=== PATIENT | female | born 1995 | race American Indian/Alaskan Native ===

== ENCOUNTER 2017-06-12 07:40 | Emergency (ER) | payer SELFPAY ==
[2017-06-12 08:28] LABS: HCG Qualitative,Urine Negative (Negative)
[2017-06-12 08:30] LABS: Bacteria,Urine 1+ /HPF (Negative); Bilirubin,Urine NEG (Negative); Blood,Urine NEG (Negative); Color,Urine Amber (Yellow); Mucus,Urine 3+ /HPF; Nitrite,Urine NEG (Negative)
--- NOTE | 2017-06-12 12:02 | Emergency Department Report ---
ED Female HPI - General Chief complaint: Urogenital-Female Stated complaint: ABDOMINAL PAIN Time Seen by Provider: 06/12/17 11:20 Source: patient Mode of arrival: Ambulatory Limitations: No Limitations - History of Present Illness Initial comments: PT states she was dx with chlamydia 1 or 2 years ago. PT states she was treated but the vaginal discharge did not resolve. PT states she had full panel STD testing 3-4 months ago and was told that everything was negative. PT states in the last week, she has noticed an odor with her vaginal discharge. She also noted a thicker discharge with itching. PT states she tried OTC monistat and Rephresh gel for this but no improvement. She denies being sexually active at this time. MD Complaint: vaginal discharge -: Gradual, year(s) Radiation: non-radiating Severity: mild Quality: other (itching ) Consistency: constant, intermittent Worsens with: menstrual period Are you Now?: No Last Menstrual Period: 06/05/17 EDC: 03/12/18 Associated Symptoms: vaginal discharge. denies: abdominal pain, nausea/vomiting , fever/chills, dysuria, rash - Related Data Sexually active: No Previous Rx's Medication Instructions Recorded Last Taken Type Fluconazole [Diflucan TAB] 150 mg PO ONCE PRN #2 tablet 06/12/17 Unknown Rx metroNIDAZOLE [Flagyl] 500 mg PO Q12HR #14 tab 06/12/17 Unknown Rx Allergies Allergy/AdvReac Type Severity Reaction Status Date / Time No Known Allergies Allergy Unverified 06/12/17 08:00 ED Review of Systems ROS: Stated complaint: ABDOMINAL PAIN Other details as noted in HPI Comment: All other systems reviewed and negative Constitutional: denies: chills, fever Gastrointestinal: denies: abdominal pain, nausea, vomiting Genitourinary: discharge. denies: dysuria, abnormal menses Musculoskeletal: denies: back pain Skin: denies: rash ED Past Medical Hx - Past Medical History Previous Medical History?: No - Surgical History Past Surgical History?: No - Social History Smoking Status: Never Smoker - Medications Home Medications: Home Medications Medication Instructions Recorded Confirmed Last Taken Type Fluconazole [Diflucan TAB] 150 mg PO ONCE PRN #2 tablet 06/12/17 Unknown Rx metroNIDAZOLE [Flagyl] 500 mg PO Q12HR #14 tab 06/12/17 Unknown Rx ED Physical Exam - General Limitations: No Limitations General appearance: alert, in no apparent distress - Head Head exam: Present: atraumatic, normocephalic, normal inspection - Eye Eye exam: Present: normal appearance, PERRL, conjunctival injection - ENT ENT exam: Present: normal exam, normal orophraynx, mucous membranes dry, TM's normal bilaterally, normal external ear exam - Neck Neck exam: Present: normal inspection, full ROM. Absent: lymphadenopathy - Respiratory Respiratory exam: Present: normal lung sounds bilaterally. Absent: respiratory distress, chest wall tenderness - Cardiovascular Cardiovascular Exam: Present: regular rate, normal rhythm, normal heart sounds - GI/Abdominal GI/Abdominal exam: Present: soft, normal bowel sounds. 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 Absent: normal external exam (thick white vaginal discharge noted on labia ) Speculum exam: Present: vaginal discharge, cervical discharge, other (friable cervix ). Absent: normal speculum exam, vaginal bleeding, foreign body Bi-manual exam: Present: normal bi-manual exam. Absent: cervical motion tendernes, adnexal tenderness, adnexal mass, uterine enlargement, uterine tenderness - Extremities Exam Extremities exam: Present: normal inspection, full ROM - Back Exam Back exam: Present: normal inspection, full ROM - Neurological Exam Neurological exam: Present: alert, oriented X3, normal gait - Psychiatric Psychiatric exam: Present: normal affect, normal mood - Skin Skin exam: Present: warm, dry, intact, normal color ED Course Vital Signs 06/12/17 06/12/17 07:57 15:04 Temperature 98.1 F 97.9 F Pulse Rate 75 73 Respiratory 16 20 Rate Blood Pressure 112/61 Blood Pressure 106/73 [Left] O2 Sat by Pulse 100 100 Oximetry - Reevaluation(s) Reevaluation #1: 06/12/17 12:03 PT aware of plan of care. Reevaluation #2: 06/12/17 13:12 PT aware of abnormal PE findings and plan of care Reevaluation #3: 06/12/17 14:24 PT empirically treated for gc/ct. PT aware to refrain to from sexual activity x 1 week. PT aware she will need to follow up with PCP or [facility]. PT aware of wet prep results. - Pulse Oximetry Interpretation Digit-Finger Initial Pulse Oximetry Readin Actions Taken: none ED Medical Decision Making - Lab Data Lab Results 06/12/17 06/12/17 Range/Units 08:06 13:50 Urine Color [place] Yellow (Yellow) Urine Turbidity Cloudy Clear (Clear) Urine pH 5.0 5.0 (5.0-7.0) Ur Specific [place] 1.034 H 1.033 H (1.003-1.030) Urine Protein 100 mg/dl 30 mg/dl (Negative) mg/dL Urine Glucose (UA) Neg Neg (Negative) mg/dL Urine Ketones Tr 20 (Negative) mg/dL Urine Blood Neg Neg (Negative) Urine Nitrite Neg Neg (Negative) Ur Reducing Substances Not Reportable Urine Bilirubin Neg Neg (Negative) Urine Ictotest Not Reportable Urine Urobilinogen 4.0 2.0 (<2.0) mg/dL Ur Leukocyte Esterase Lg Neg (Negative) Urine WBC (Auto) 39.0 H 4.0 (0.0-6.0) /HPF Urine RBC (Auto) 63.0 3.0 (0.0-6.0) /HPF U Epithel Cells (Auto) 16.0 H 2.0 (0-13.0) /HPF Urine Bacteria (Auto) 1+ (Negative) /HPF Urine Mucus 3+ 3+ /HPF Urine Yeast (Budding) 2+ /HPF Urine HCG, Qual Negative (Negative) Repeat cath ua without concerns for UTI. first specimen likely contaminated with vaginal discharge - Differential Diagnosis std, vaginiosis, , uti Critical Care Time: No Critical care attestation.: If time is entered above; I have spent that time in minutes in the direct care of this critically ill patient, excluding procedure time. ED Disposition Clinical Impression: Friable cervix, Bacterial vaginosis, Candidiasis of vulva and vagina Disposition: DC-01 TO HOME OR SELFCARE Is pt being admited?: No Does the pt Need Aspirin: No Condition: Stable Instructions: Bacterial Vaginosis (ED), Cervicitis (ED) Additional Instructions: Follow up with PCP or [facility] [employer]GER in the next week No sex x 1 week Follow up with culture results, if positive, partners will need testing/ treatment No alcohol while on Flagyl and for three days after completion of antibiotics. Prescriptions: Fluconazole [Diflucan TAB] 150 mg PO ONCE PRN #2 tablet PRN Reason: Itching metroNIDAZOLE [Flagyl] 500 mg PO Q12HR #14 tab Referrals: PRIMARY CARE, [Primary Care Provider] - 3-5 Days [facility] [Provider Group] - 3-5 Days [facility] [Outside] - 3-5 Days Forms: STI Treatment and Prevention Time of Disposition: 14:29
[2017-06-12] MEDS ORDERED: ZITHROMAX PO ONE (13:10)
[2017-06-12] MEDS ORDERED: XYLOCAINE 1% MPF 5 mL INFILTRATI ONE (13:10)
[2017-06-12] MEDS ORDERED: ROCEPHIN IM ONE (13:10)
[2017-06-12] MEDS ORDERED: PHENERGAN PO ONE (13:10)
[2017-06-12 14:11] LABS: Bilirubin,Urine NEG (Negative); Blood,Urine NEG (Negative); Color,Urine Yellow (Yellow); Mucus,Urine 3+ /HPF; Nitrite,Urine NEG (Negative)
[2017-06-12 15:07] VITALS: BP 106/73
== END 2017-06-12 15:04 | disposition home or self-care (01) ==
LOC: ED 07:40
DX: N76.0 Acute vaginitis (principal); B96.89 Other specified bacterial agents as the cause of diseases classified elsewhere; B37.3 Candidiasis of vulva and vagina
CPT/HCPCS: 81001; 81025; 87210; 87591; 96372; 99284; J0696; Q0169

== ENCOUNTER 2018-11-02 11:09 | Emergency (ER) | payer SELFPAY ==
[2018-11-02 11:20] VITALS: BP 140/79
--- NOTE | 2018-11-02 11:23 | Emergency Department Report ---
Blank Doc - Documentation Documentation: 23 yo female presents to ed cc of feeling dizzy this morning upon waking up states she has had similar symtoms in the past. She states was told she had anxiety she states dizziness occurs at random moments and room spinning LMP: 10/09/18 Labs, POC glucose: 107, ACC eval
[2018-11-02] MEDS ORDERED: ANTIVERT PO ONE (11:25)
--- NOTE | 2018-11-02 11:52 | Emergency Department Report ---
ED Dizziness HPI - General Chief Complaint: Dizziness Stated Complaint: DIZZINESS/SHAKING/CONFUSION Time Seen by Provider: 11/02/18 11:17 Source: patient Mode of arrival: Ambulatory Limitations: No Limitations - History of Present Illness Initial Comments: This is a 23-year-old after [place] female who presents to the emergency room with the same as in the sensation of not feeling like herself upon awakening. Patient states she drunk some orange juice because she was diagnosed with hypoglycemia in the past. She continued to feel shaky and not like her self after drinking juice and decided to come in for evaluation. Denies history of diabetes. Last menstrual period 10/09/2018, 0. Denies taking illegal drugs, palpitations, nausea, vomiting, diaphoresis. MD Complaint: dizziness -: This morning Timing: now resolved Description: lightheadedness History of Same: Yes History of Trauma: No Severity: mild Improves With: remaining still Worsens With: movement Associated Symptoms: denies other symptoms - Related Data Previous Rx's Medication Instructions Recorded Last Taken Type Fluconazole [Diflucan TAB] 150 mg PO ONCE PRN #2 tablet 06/12/17 Unknown Rx metroNIDAZOLE [Flagyl] 500 mg PO Q12HR #14 tab 06/12/17 Unknown Rx Allergies Allergy/AdvReac Type Severity Reaction Status Date / Time No Known Allergies Allergy Unverified 06/12/17 08:00 ED Review of Systems ROS: Stated complaint: DIZZINESS/SHAKING/CONFUSION Other details as noted in HPI Constitutional: denies: chills, fever Respiratory: denies: cough, shortness of breath, wheezing Cardiovascular: denies: chest pain, palpitations Gastrointestinal: denies: abdominal pain, nausea, diarrhea Neurological: vertigo. denies: headache, weakness, paresthesias Psychiatric: denies: anxiety, depression ED Past Medical Hx - Past Medical History Previous Medical History?: No - Surgical History Past Surgical History?: No - Social History Smoking Status: Former Smoker Substance Use Type: Alcohol, Marijuana, Prescribed - Medications Home Medications: Home Medications Medication Instructions Recorded Confirmed Last Taken Type Fluconazole [Diflucan TAB] 150 mg PO ONCE PRN #2 tablet 06/12/17 Unknown Rx metroNIDAZOLE [Flagyl] 500 mg PO Q12HR #14 tab 06/12/17 Unknown Rx ED Physical Exam - General Limitations: No Limitations General appearance: alert, in no apparent distress - Respiratory Respiratory exam: Present: normal lung sounds bilaterally. Absent: respiratory distress - Cardiovascular Cardiovascular Exam: Present: regular rate, normal rhythm. Absent: systolic murmur, diastolic murmur, rubs, gallop - GI/Abdominal GI/Abdominal exam: Present: soft, normal bowel sounds - Neurological Exam Neurological exam: Present: alert, oriented X3 - Psychiatric Psychiatric exam: Present: normal affect, normal mood - Skin Skin exam: Present: warm, dry, intact, normal color. Absent: rash ED Course Vital Signs 11/02/18 11:17 Temperature 97.9 F Pulse Rate 88 Respiratory 18 Rate Blood Pressure 140/79 O2 Sat by Pulse 100 Oximetry ED Medical Decision Making - Lab Data Result diagrams: 11/02/18 11:28 11/02/18 11:28 Lab Results 11/02/18 11/02/18 Range/Units 11:28 11:28 WBC 4.5 (4.5-11.0) K/mm3 RBC 4.50 (3.65-5.03) M/mm3 Hgb 13.2 (10.1-14.3) gm/dl Hct 39.0 (30.3-42.9) % MCV 87 (79-97) fl MCH 29 (28-32) pg MCHC 34 (30-34) % RDW 13.4 (13.2-15.2) % Plt Count 185 (140-440) K/mm3 Lymph % (Auto) 48.8 H (13.4-35.0) % [place] % (Auto) 9.4 H (0.0-7.3) % Eos % (Auto) 1.8 (0.0-4.3) % Baso % (Auto) 1.2 (0.0-1.8) % Lymph # 2.2 (1.2-5.4) K/mm3 [place] # 0.4 (0.0-0.8) K/mm3 Eos # 0.1 (0.0-0.4) K/mm3 Baso # 0.1 (0.0-0.1) K/mm3 Seg Neutrophils % 38.8 L (40.0-70.0) % Seg Neutrophils # 1.7 L (1.8-7.7) K/mm3 Sodium 138 (137-145) mmol/L Potassium 3.8 (3.6-5.0) mmol/L Chloride 103.1 (98-107) mmol/L Carbon Dioxide 23 (22-30) mmol/L Anion Gap 16 mmol/L BUN 10 (7-17) mg/dL Creatinine 0.8 (0.7-1.2) mg/dL Estimated GFR > 60 ml/min BUN/Creatinine Ratio 13 % Glucose 106 H (65-100) mg/dL Calcium 9.0 (8.4-10.2) mg/dL Lab Results 11/02/18 11/02/18 11/02/18 Range/Units 11:28 11:28 11:28 WBC 4.5 (4.5-11.0) K/mm3 RBC 4.50 (3.65-5.03) M/mm3 Hgb 13.2 (10.1-14.3) gm/dl Hct 39.0 (30.3-42.9) % MCV 87 (79-97) fl MCH 29 (28-32) pg MCHC 34 (30-34) % RDW 13.4 (13.2-15.2) % Plt Count 185 (140-440) K/mm3 Lymph % (Auto) 48.8 H (13.4-35.0) % [place] % (Auto) 9.4 H (0.0-7.3) % Eos % (Auto) 1.8 (0.0-4.3) % Baso % (Auto) 1.2 (0.0-1.8) % Lymph # 2.2 (1.2-5.4) K/mm3 [place] # 0.4 (0.0-0.8) K/mm3 Eos # 0.1 (0.0-0.4) K/mm3 Baso # 0.1 (0.0-0.1) K/mm3 Seg Neutrophils % 38.8 L (40.0-70.0) % Seg Neutrophils # 1.7 L (1.8-7.7) K/mm3 Sodium 138 (137-145) mmol/L Potassium 3.8 (3.6-5.0) mmol/L Chloride 103.1 (98-107) mmol/L Carbon Dioxide 23 (22-30) mmol/L Anion Gap 16 mmol/L BUN 10 (7-17) mg/dL Creatinine 0.8 (0.7-1.2) mg/dL Estimated GFR > 60 ml/min BUN/Creatinine Ratio 13 % Glucose 106 H (65-100) mg/dL Calcium 9.0 (8.4-10.2) mg/dL HCG, Qual Negative (Negative) - Medical Decision Making Patient was examined by me. Vitals are normal and patient is in no acute distress. Patient reports dizziness resolved on exam. Obtained CBC, hCG, and BMP. All labs are unremarkable. Patient informed of results. Plan discussed with patient to discharge home and treat outpatient. Referral to primary care provider for follow-up. She agrees with ER plan. Patient discharged home in stable condition. Critical care attestation.: If time is entered above; I have spent that time in minutes in the direct care of this critically ill patient, excluding procedure time. ED Disposition Clinical Impression: Dizziness of unknown cause, Physically well but worried Disposition: DC-01 TO HOME OR SELFCARE Is pt being admited?: No Does the pt Need Aspirin: No Condition: Stable Instructions: Dizziness (ED) Additional Instructions: Follow-up with a primary care doctor from referral. Referrals: LORI ALEXANDER MD [Primary Care Provider] - 3-5 Days [facility] [Outside] - 3-5 Days [facility] [Outside] - 3-5 Days Forms: Work/School Release Form(ED) Time of Disposition: 12:48
[2018-11-02 12:00] LABS: Basophils # (Auto) 0.1 K/mm3 (0.0-0.1); Basophils % (Auto) 1.2 % (0.0-1.8); Eosinophils # (Auto) 0.1 K/mm3 (0.0-0.4); Eosinophils % (Auto) 1.8 % (0.0-4.3); Hemoglobin 13.2 gm/dl (10.1-14.3); Lymphocytes # (Auto) 2.2 K/mm3 (1.2-5.4); Lymphocytes % (Auto) 48.8 % (13.4-35.0); Mean Corpuscular HGB Conc 34 % (30-34); Mean Corpuscular Volume 87 fl (79-97); Monocytes # (Auto) 0.4 K/mm3 (0.0-0.8); Monocytes % (Auto) 9.4 % (0.0-7.3); Platelet Count 185 K/mm3 (140-440); Red Cell Distribution Width 13.4 % (13.2-15.2)
[2018-11-02 12:13] LABS: BUN/Creatinine Ratio 13; Blood Urea Nitrogen 10 mg/dL (7-17); Hemolysis Index 4
== END 2018-11-02 12:54 | disposition home or self-care (01) ==
LOC: ED 11:09
DX: R42 Dizziness and giddiness (principal); F12.10 Cannabis abuse, uncomplicated; Z87.891 Personal history of nicotine dependence
CPT/HCPCS: 36415; 80048; 82962; 84703; 85025; 99283